=== PATIENT | female | born 1945 | race Caucasian/White ===

== ENCOUNTER 2016-10-29 04:47 | Emergency (ER) | payer MEDICAID, MEDICARE ==
[~2016-10-29] VITALS: Ht 160 cm; Wt 70.4 kg
[2016-10-29] MEDS ORDERED: PHENAZOPYRIDINE 200 MG TABLET ONE (05:14)
[2016-10-29] MEDS ORDERED: PHENAZOPYRIDINE 200 MG TABLET PO ONE (05:30)
[2016-10-29 06:31] VITALS: BP 154/69
== END 2016-10-29 06:32 | disposition home or self-care (01) ==
LOC: ED 05:17
DX: N30.01 Acute cystitis with hematuria (principal)
CPT/HCPCS: 81001; 87077; 87086; 87186; 99284

== ENCOUNTER 2017-03-02 09:48 | Emergency (ER) | payer MEDICARE ==
[~2017-03-02] VITALS: Ht 160 cm; Wt 72.1 kg
[2017-03-02 09:49] VITALS: BP 145/81
== END 2017-03-02 10:40 | disposition home or self-care (01) ==
LOC: ED 10:15
DX: G43.109 Migraine with aura, not intractable, without status migrainosus (principal)
CPT/HCPCS: 93005; 99283

== ENCOUNTER 2017-06-07 04:07 | Emergency (ER) | payer MEDICARE ==
[2017-06-07 04:09] VITALS: BP 168/85
[2017-06-07] MEDS ORDERED: PHENAZOPYRIDINE 200 MG TABLET ONE (04:38)
[2017-06-07] MEDS ORDERED: KETOROLAC 30 MG/1 ML ONE (04:38)
[2017-06-07 04:51] LABS: PATH.CAST-FLAG NOT PRESENT; SPERM-FLAG NOT PRESENT; SRC-FLAG NOT PRESENT; XTAL-FLAG NOT PRESENT; YLC-FLAG NOT PRESENT
[2017-06-07] MEDS ORDERED: PHENAZOPYRIDINE 200 MG TABLET PO ONE (05:00)
[2017-06-07] MEDS ORDERED: KETOROLAC 30 MG/1 ML IM ONE (05:00)
[2017-06-07 05:10] LABS: HEMATOCRIT 34.6 % (34.6-47.8); HEMOGLOBIN 11.6 g/dL (11.7-16.4); WHITE BLOOD COUNT 4.7 x10^3/uL (3.4-10)
[2017-06-07 05:12] LABS: BLOOD UREA NITROGEN 13 mg/dL (7-18)
== END 2017-06-07 05:39 | disposition home or self-care (01) ==
LOC: ED 04:36
DX: N30.00 Acute cystitis without hematuria (principal)
CPT/HCPCS: 36415; 80048; 81001; 82040; 85025; 87077; 87086; 96372; 99284; J1885; 87186

== ENCOUNTER 2018-05-18 02:51 | Emergency (ER) | payer MEDICARE ==
[~2018-05-18] VITALS: Ht 160 cm; Wt 78.8 kg
[2018-05-18 03:34] LABS: MICROSCOPIC AUTO
[2018-05-18] MEDS ORDERED: ACETAMINOPHEN 500 MG TABLET ONE (03:37)
[2018-05-18] MEDS ORDERED: MAALOX/HYOSCYAMINE/LIDOCAINE 45 ML BTL ONE (03:37)
[2018-05-18] MEDS ORDERED: LIDODERM 5% PATCH TD ONE (04:00)
[2018-05-18] MEDS ORDERED: MAALOX/HYOSCYAMINE/LIDOCAINE 45 ML BTL PO ONE (04:00)
[2018-05-18] MEDS ORDERED: ACETAMINOPHEN 500 MG TABLET PO ONE (04:00)
[2018-05-18] MEDS ORDERED: CEFDINIR 300 MG CAPSULE ONE (04:13)
[2018-05-18 04:26] VITALS: BP 144/65
[2018-05-18] MEDS ORDERED: CEFDINIR 300 MG CAPSULE PO SCH (09:00)
== END 2018-05-18 04:41 | disposition home or self-care (01) ==
LOC: ED 03:14
DX: G89.29 Other chronic pain (principal); K29.00 Acute gastritis without bleeding; N39.0 Urinary tract infection, site not specified; M54.41 Lumbago with sciatica, right side
CPT/HCPCS: 81001; 99284

== ENCOUNTER 2018-12-17 11:28 | Emergency (ER) | payer MEDICARE ==
[~2018-12-17] VITALS: Ht 160 cm; Wt 81.0 kg
--- NOTE | 2018-12-17 11:58 | NUR ---
pt to ed for right sided flank pain x2 hours with associated frequency and retention x5 days. pt connected to monitors. vss. edmd present for assessment. awaiting orders.
[2018-12-17] MEDS ORDERED: IBUPROFEN 200 MG TABLET PO ONE (12:00)
[2018-12-17] MEDS ORDERED: IBUPROFEN 600 MG TABLET ONE (12:02)
--- NOTE | 2018-12-17 12:10 | NUR ---
pt medicated per mar. vss. no needs expressed. awaiting ua resutls.
[2018-12-17 12:12] LABS: MICROSCOPIC AUTO
[2018-12-17 12:15] LABS: CULTURE INDICATED? YES
--- NOTE | 2018-12-17 12:56 | NUR ---
pt resting in room. vss. no needs expressed. pt reports decrease in pain. awaiting ua resutls.
[2018-12-17] MEDS ORDERED: CEFTRIAXONE 1,000 MG IM ONE (13:00)
[2018-12-17] MEDS ORDERED: CEFTRIAXONE 1,000 MG ONE (13:30)
[2018-12-17 13:49] VITALS: BP 149/61
== END 2018-12-17 13:59 | disposition home or self-care (01) ==
LOC: ED 13:53
DX: N30.01 Acute cystitis with hematuria (principal); Z90.710 Acquired absence of both cervix and uterus; G43.909 Migraine, unspecified, not intractable, without status migrainosus
CPT/HCPCS: 81001; 87077; 87086; 87186; 96372; 99283; J0696

== ENCOUNTER 2019-08-15 11:40 | Emergency (ER) | payer MEDICARE ==
[~2019-08-15] VITALS: Ht 160 cm; Wt 75.4 kg
[~2019-08-15 11:40] MED LIST: vitamins
[2019-08-15 12:01] VITALS: BP 148/50
== END 2019-08-15 12:36 | disposition home or self-care (01) ==
LOC: ED 12:30
DX: H60.502 Unspecified acute noninfective otitis externa, left ear (principal); H92.02 Otalgia, left ear; Z90.710 Acquired absence of both cervix and uterus
CPT/HCPCS: 99283

== ENCOUNTER 2019-08-23 08:44 | Outpatient (CLI) | payer MEDICARE | END 2019-08-23 23:59 | disposition home or self-care (01) | LOC: CFH 08:44 | PROVIDERS: ATTEND Nurse Practitioner Family | DX: M85.88 Other specified disorders of bone density and structure, other site (principal) | CPT/HCPCS: 77080 ==